=== PATIENT | male | born 1955 | race Caucasian/White ===

== ENCOUNTER 2019-10-24 22:37 | Emergency (ER) | payer OTHER ==
--- NOTE | 2019-10-25 00:11 | EDPHYS ---
Physician Documentation [facility] Name: Grey Thao Age: 64 yrs Sex: Male : 1955 Arrival Date: 10/24/2019 Time: 22:41 Bed 6 Private MD: ED Physician Irving Knox HPI: 10/23 22:57 This 64 yrs old Male presents to ER via Ambulatory with complaints of Fall pkl Injury, Head Injury-Adult. 22:57 Details of fall: The patient fell from a height, from a ladder. Associated injuries: pkl The patient sustained injury to the head, contusion, hematoma, swelling. Historical: - Allergies: 22:56 No Known Allergies; ll1 - PMHx: 22:56 Hypothyroidism; Hyperlipidemia; ll1 - PSHx: 22:56 Cholecystectomy; ll1 - Immunization history: Last tetanus immunization: < 5 years ago. - Social history:: Smoking status: unknown. - Social history: Denies using street drugs, IV drugs, alcohol. ROS: 22:57 ENT: Negative for injury, pain, and discharge. pkl 22:57 Eyes: Positive for swelling, of the right eye. 22:57 Neck: Negative for injury or acute deformity, pain with movement, stiffness. 22:57 Cardiovascular: Negative for chest pain. 22:57 Respiratory: Negative for cough, shortness of breath. 22:57 Abdomen/GI: Negative for abdominal pain, nausea, vomiting, and diarrhea. 22:57 Back: Negative for injury or acute deformity, pain with movement. 22:57 : Negative for urinary symptoms. 22:57 MS/extremity: Negative for acute changes, injury or acute deformity. 22:57 Skin: Negative for rash. 22:57 Neuro: Negative for altered mental status, loss of consciousness. Exam: 22:57 ENT: Nares patent. No nasal discharge, no septal abnormalities noted. Tympanic pkl membranes are normal and external auditory canals are clear. Oropharynx with no redness, swelling, or masses, exudates, or evidence of obstruction, uvula midline. Mucous membranes moist. 22:57 Head/face: Noted is contusion, hematoma, that is moderate, of the right side face. 22:57 Eyes: Periorbital structures: swelling, that is moderate, on the right eye. 22:57 Neck: Exam negative for acute changes, obvious evidence of injury or deformity. 22:57 Chest/axilla: Exam negative for acute changes. 22:57 Cardiovascular: Rate: normal, Rhythm: regular. 22:57 Respiratory: the patient does not display signs of respiratory distress, Respirations: normal, Breath sounds: are clear throughout. 22:57 Abdomen/GI: Bowel sounds: normal. 22:57 Back: Exam negative for acute changes. 22:57 : Exam negative for acute changes. 22:57 Musculoskeletal/extremity: Exam is negative for acute changes. 22:57 Skin: Exam negative for rash. 22:57 Neuro: Orientation: is normal, Mentation: is normal, Memory: is normal, Cranial nerves: grossly normal, Cerebellar function: is grossly normal, Motor: is normal, Sensation: is normal, Gait: is steady. Vital Signs: 22:57 BP 153 / 105; Pulse 80; Resp 18; Temp 97.7; Pulse Ox 97% ; Pain 2/10; ll1 23:40 BP 150 / 98; Pulse 80; Resp 18; Pulse Ox 99% ; ea [place] Coma Score: 22:57 Eye Response: spontaneous(4). Verbal Response: oriented(5). Motor Response: obeys ll1 commands(6). Total: 15. 23:40 Eye Response: spontaneous(4). Verbal Response: oriented(5). Motor Response: obeys ea commands(6). Total: 15. Trauma Score (Adult): 22:57 Eye Response: spontaneous(1); Verbal Response: oriented(1); Motor Response: obeys ll1 commands(2); Systolic BP: > 89 mm Hg(4); Respiratory Rate: 10 to 29 per min(4); [place] Score: 15; Trauma Score: 12 MDM: 22:44 Patient medically screened. pkl 10/24 00:04 Data reviewed: vital signs, nurses notes, radiologic studies, CT scan. ED course: pkl Discussed CT Scan results with patient. Advised to follow up with Maintenance And Engineering Manager in 1 to 2 days. To continue ice pack to right side face. Patient understood instructions.. 04 22:57 Order name: CT Head Brain wo Cont pkl 10/23 23:33 Order name: Facial Bones W/ Mpr EDMS Administered Medications: No medications were administered Disposition: 10/25/19 00:10 Discharged to Home. Impression: Right facial and periorbital soft tissue swelling with hematoma formation. - Condition is Stable. - Medication Reconciliation Form, Thank You Letter, Antibiotic Education, Prescription Opioid Use form. - Follow up: Wyatt Flor MD; When: 1 - 2 days; Reason: Re-evaluation by your physician. - Problem is new. - Symptoms have improved. Signatures: Dispatcher [employer] [facility] Irving Knox MD MD pkGabriela Cheema RN RN Luli Nicole RN RN ll1 Corrections: (The following items were deleted from the chart) 10/23 23:31 22:57 Facial Bones W/ MPR+[id number].[id number] ordered. [facility] 10/24 00:23 00:10 10/25/2019 00:10 Discharged to Home. Impression: Right facial and periorbital ea soft tissue swelling with hematoma formation. Condition is Stable. Forms are Medication Reconciliation Form, Thank You Letter, Antibiotic Education, Prescription Opioid Use. Follow up: Wyatt Flor; When: 1 - 2 days; Reason: Re-evaluation by your physician. Problem is new. Symptoms have improved. pkl
--- NOTE | 2019-10-25 00:11 | ER ---
Nurse's Notes [facility] Name: Grey Thao Age: 64 yrs Sex: Male : 1955 Arrival Date: 10/24/2019 Time: 22:41 Bed 6 Private MD: Diagnosis: Right facial and periorbital soft tissue swelling with hematoma formation Presentation: 10/23 22:51 Chief complaint: Patient states: Fell down attic steps today at 1700. Large hematoma to ll1 right side of face/eye area. No LOC. No blood thinners. Laceration noted right wrist, no active bleeding. Gait steady. Care prior to arrival: None. Mechanism of Injury: Fall from ladder. Trauma event details: Injury occurred in the [facility], Injury occurred: at home. Injury occurred: October 24, 2019 Injury occurred at: 17:00. 22:51 Acuity: ANASTACIA 2 ll1 22:51 Method Of Arrival: Ambulatory ll1 23:18 Coronavirus screen: Proceed with normal triage. Ebola Screen: No symptoms or risks ea identified at this time. Initial Sepsis Screen: Does the patient meet any 2 criteria? No. Patient's initial sepsis screen is negative. Does the patient have a suspected source of infection? No. Patient's initial sepsis screen is negative. Risk Assessment: Do you want to hurt yourself or someone else? Patient reports no desire to harm self or others. Onset of symptoms was October 24, 2019. Trauma Activation: Alert Physician: ED Physician; Name: Sheri; Notified At: ; Arrived At: Physician: General Surgeon; Name: ; Notified At: ; Arrived At: Physician: Radiology; Name: ; Notified At: ; Arrived At: Physician: Respiratory; Name: ; Notified At: ; Arrived At: Physician: Lab; Name: ; Notified At: ; Arrived At: Trauma Activation: Alert Physician: ED Physician; Name: Dr. Knox; Notified At: 22:50; Arrived At: 22:50 Physician: General Surgeon; Name: N/A; Notified At: 22:50; Arrived At: Physician: Radiology; Name: Rosy Sanchez Jamie, Dewayne; Notified At: 22:50; Arrived At: 22:55 Physician: Respiratory; Name: N/A; Notified At: 22:50; Arrived At: Physician: Lab; Name: N/A; Notified At: 22:50; Arrived At: Historical: - Allergies: 22:56 No Known Allergies; ll1 - PMHx: 22:56 Hypothyroidism; Hyperlipidemia; ll1 - PSHx: 22:56 Cholecystectomy; ll1 - Immunization history: Last tetanus immunization: < 5 years ago. - Social history:: Smoking status: unknown. - Social history: Denies using street drugs, IV drugs, alcohol. Screenin:17 Abuse screen: Denies threats or abuse. Nutritional screening: No deficits noted. ea Tuberculosis screening: No symptoms or risk factors identified. Fall Risk Fall in past 12 months (25 points). Primary Survey: 23:15 NO uncontrolled hemorrhage observed. A: The patient is alert. Airway: patent. ea Breathing/Chest: Respiratory pattern: regular, Respiratory effort: spontaneous, unlabored. Circulation: Skin temperature: warm. Disability Alert. Exposure/Environment: There is no evidence of uncontrolled external bleeding. Obvious injury(ies) are noted at this time: bruising and swelling to right side of face. 10/24 00:07 Reassessment Breathing/Chest Respiratory pattern Regular Respiratory effort Spontaneous ea Unlabored. Assessment: 10/23 22:53 General: Appears uncomfortable, Behavior is calm, cooperative. Pain: Complains of pain ll1 in right side of head Pain currently is 2 out of 10 on a pain scale. Quality of pain is described as aching, Pain began 4 hours ago. Is continuous. Neuro: Level of Consciousness is awake, alert, obeys commands, Oriented to person, place, time, situation, Appropriate for age Barmaid are equal bilaterally Moves all extremities. Full function Gait is steady, Speech is normal, large hematoma right eye area. Pupils are PERRLA, Reports headache in right Denies weakness dizziness. Cardiovascular: No deficits noted. Respiratory: No deficits noted. Derm: Wound noted right wrist Reports laceration right wrist. Injury Description: Head injury sustained to right side of head. 23:40 Reassessment: Patient and/or family updated on plan of care and expected duration. Pain ea level reassessed. Patient is alert, oriented x 3, equal unlabored respirations, skin warm/dry/pink. Provider updating pt on plan of care. 10/24 00:22 Reassessment: Patient and/or family updated on plan of care and expected duration. Pain ea level reassessed. Patient is alert, oriented x 3, equal unlabored respirations, skin warm/dry/pink. Discharge instruction given to patient, verbalized the understanding of instruction. Pt left ED ambulatory tolerating well. Vital Signs: 10/23 22:57 BP 153 / 105; Pulse 80; Resp 18; Temp 97.7; Pulse Ox 97% ; Pain 2/10; ll1 23:40 BP 150 / 98; Pulse 80; Resp 18; Pulse Ox 99% ; ea [place] Coma Score: 22:57 Eye Response: spontaneous(4). Verbal Response: oriented(5). Motor Response: obeys ll1 commands(6). Total: 15. 23:40 Eye Response: spontaneous(4). Verbal Response: oriented(5). Motor Response: obeys ea commands(6). Total: 15. Trauma Score (Adult): 22:57 Eye Response: spontaneous(1); Verbal Response: oriented(1); Motor Response: obeys ll1 commands(2); Systolic BP: > 89 mm Hg(4); Respiratory Rate: 10 to 29 per min(4); [place] Score: 15; Trauma Score: 12 ED Course: 22:41 Patient arrived in ED. ds1 22:44 Irving Knox MD is Attending Physician. pkl 22:53 Triage completed. ll1 22:58 Patient has correct armband on for positive identification. Placed in gown. Bed in low ll1 position. Call light in reach. Side rails up X 1. 23:17 Gabriela Montenegro, RN is Primary Nurse. ea 23:18 Patient maintains SpO2 saturation greater than 95% on room air. Thermoregulation: warm ea blanket given to patient. 23:32 Arm band placed on right wrist. Patient placed in an exam room, on a stretcher, on ea pulse oximetry. 23:41 CT Head Brain wo Cont In Process Unspecified. EDMS 23:41 Facial Bones W/ Mpr In Process Unspecified. EDMS 10/24 00:08 Wyatt Flor MD is Referral Physician. pkl 00:22 No provider procedures requiring assistance completed. Patient did not have IV access ea during this emergency room visit. Administered Medications: No medications were administered Intake: 00:07 PO: 0ml; Total: 0ml. ea Outcome: 00:10 Discharge ordered by . basil 00:22 Discharged to home ambulatory. ea 00:22 Condition: stable 00:22 Discharge instructions given to patient, Instructed on discharge instructions, follow up and referral plans. Demonstrated understanding of instructions, follow-up care. 00:22 Patient's length of stay was not longer than 2 hours. ea 00:23 Patient left the ED. ea Signatures: Dispatcher [employer] EDMS Irving Knox MD MD pkl Sanford, Demi ds1 Monae Childers RN RN lp1 Gabriela Montenegro RN Luli Rosenbaum ea RN RN ll1
[2019-10-25 00:40] VITALS: BP 153/105; TEMP 97.7; O2SAT 97
--- NOTE | 2019-10-25 12:18 | RAD REPORT ---
EXAM DESCRIPTION: CT - Facial Bones W/ Mpr - 10/25/2019 6:27 am CLINICAL HISTORY: The patient is 64 years old and is Male; FELL pain TECHNIQUE: Axial computed tomography images of the face without intravenous contrast. Sagittal and coronal reformatted images were created and reviewed. This CT exam was performed using one or more of the following dose reduction techniques: automated exposure control, adjustment of the mA and/o r kV according to patient size, and/or use of iterative reconstruction technique. COMPARISON: No relevant prior studies available. FINDINGS: BONES/JOINTS: The orbital floors and francisco are intact. The zygomatic arches and pteryg oid plates are intact. The visualized maxilla and mandible are intact. SOFT TISSUES: Right facial and periorbital soft tissue swelling and hematoma is present. ORBITS: The globes, extraocular muscles, and optic nerve complexes are within normal limits. SINUSES: The visualized paranasal sinuses are clear. No air-fluid levels. NASAL CAVITY/SEPTUM: The nasal bones are intact. IMPRESSION: No acute facial fracture. Right facial and periorbital soft tissue swelling with hematom a formation. Electronically signed by: Melissa Guaman MD 10/24/2019 11:49 PM CDT Due to temporary technical issues with the PACS/Fluency reporting system, reports are being signed by the in house radiologist as a courtesy to ensure prompt reporting. The interpreting radiologist is f ully responsible for the content of the report.
--- NOTE | 2019-10-25 12:32 | RAD REPORT ---
EXAM DESCRIPTION: CT - Head Brain Wo Cont - 10/25/2019 6:26 am CLINICAL HISTORY: 64 years Male fall COMPARISON: None TECHNIQUE: Images were obtained in axial, sagittal, and coronal planes. This exam was performed according to our departmental dose-optimization program which includes use of Automated Exposure Control, adjustment of the mA and/or kV according to patient size and/or use of iterative reconstruction technique. FINDINGS: Ventricular system appears normal. No abnormal areas of increased or decreased attenuation are seen involving the brain parenchyma. No e xtra-axial fluid collections noted. Right periorbital and maxillary soft tissue swelling with hematoma. No evidence for skull fracture. S ymmetric aeration mastoid air cells bilaterally. Unremarkable paranasal sinuses. IMPRESSION: No acute intracranial abnormality. No evidence for hemorrhage, mass lesion, or large acu te infarction. Right periorbital and facial soft tissue swelling and hematoma. Electronically signed by: Amairani Izquierdo MD 10/24/2019 11:46 PM CDT Due to temporary technical issues with the PACS/Fluency reporting system, reports are being signed by the in house radiologist as a courtesy to ensure prompt reporting. The interpreting radiologist is f ully responsible for the content of the report.
== END 2019-10-25 00:23 | disposition home or self-care (01) ==
LOC: ER 22:37
DX: S00.83XA Contusion of other part of head, initial encounter (principal); R22.9 Localized swelling, mass and lump, unspecified; W11.XXXA Fall on and from ladder, initial encounter; Y93.9 Activity, unspecified; Y92.9 Unspecified place or not applicable
CPT/HCPCS: 70450; 70486; 76377; 99284